=== PATIENT | male | born 1945 | race Caucasian/White ===

== ENCOUNTER → 2019-08-04 | Outpatient (CLI) | payer MEDICARE, BC ==
[2019-08-04 15:18] LABS: HCT 47.1 % (39.0-53.0); HGB 15.7 gm/dL (13.0-17.5); MCH 31.1 pg (25.0-35.0); MCHC 33.3 g/dL (31.0-37.0); MCV 93.5 fL (80.0-100.0); Mean Platelet Volume 6.6; Platelet Count 346 k/uL (150-450); RBC 5.04 m/uL (4.30-5.90); RDW 12.8 % (11.5-15.5); WBC 10.2 k/uL (3.8-10.6)
[2019-08-04 15:21] LABS: Appearance,Urine Clear (Clear); Bilirubin,Urine Negative (Negative); Blood,Urine Negative (Negative); Color,Urine Yellow; Glucose,Urine (UA) Negative (Negative); Ketones,Urine Negative (Negative); Leukocyte Esterase,Urine Negative (Negative); Nitrite,Urine Negative (Negative); Protein,Urine Negative (Negative); Specific Gravity,Urine 1.015 (1.001-1.035); Urobilinogen,Urine <2.0 mg/dL (<2.0)
[2019-08-04 15:24] LABS: Partial Thromboplastin Time 25.2 sec (22.0-30.0); Prothrombin Time 10.5 sec (9.0-12.0)
[2019-08-04 15:27] LABS: Albumin 4.5 g/dL (3.5-5.0); Calcium 9.8 mg/dL (8.4-10.2); Potassium 4.9 mmol/L (3.5-5.1); Total Bilirubin 0.7 mg/dL (0.2-1.3); Total Protein 7.2 g/dL (6.3-8.2)
== END | disposition home or self-care (01) ==
LOC: LABPAT 14:34
PROVIDERS: ATTEND Orthopaedic Surgery
DX: Z01.818 Encounter for other preprocedural examination (principal); Z01.812 Encounter for preprocedural laboratory examination; Z51.81 Encounter for therapeutic drug level monitoring; Z79.01 Long term (current) use of anticoagulants
CPT/HCPCS: 36415; 80053; 81003; 85027; 85610; 85730; 87070; 93005

== ENCOUNTER 2019-08-18 11:58 | Day surgery (SDC) | payer MEDICARE, BC ==
[2019-08-14 09:38] VITALS: BMI 30.1
[~2019-08-18 11:58] MED LIST: ACETAMINOPHEN TAB 500 MG TAB PO ONE; DEXAMETHASONE SOD PHOSPHATE 10 MG/ML 1 ML VIAL IV ONE; GABAPENTIN 300 MG CAP PO ONE; HYDROmorphone 0.5 MG/0.5 ML SYRINGE IVP PRN; LIDOCAINE 1% 20 ML VIAL (10MG/ML) FOR IV START INTRADERMA PRN; MELOXICAM 7.5 MG TAB PO ONE; METOCLOPRAMIDE 5 MG/ML 2 ML VIAL IVP PRN; ONDANSETRON 4 MG/2 ML VIAL IVP ONE; ROPIVACAINE 246.25 MG, EPINEPHrine 0.5 MG, KETOROLAC 30 MG, cloNIDine HCL/PF 80 MCG, WA... MISCELLANE ONE; VANCOMYCIN 1,500 MG in SODIUM CHLORIDE 0.9% 250 ML IVPB ONE
[2019-08-18] MEDS: LACTATED RINGERS 1,000 ML IV SCH ×2 (12:28→20:07)
[2019-08-18] MEDS ORDERED: MIDAZOLAM 2 MG/2 ML VIAL IV ONE (12:56)
[2019-08-18] MEDS ORDERED: fentaNYL (PF) 50 MCG/ML 2 ML AMP IV ONE (12:56)
--- NOTE | 2019-08-18 13:46 | P.ANPRN ---
Procedure Note - Anesthesia - Nerve Block Performed Left Adductor Canal Infusion Time Out Performed: Yes ([id number]) Date of Procedure: 08/18/19 Procedure Start Time: 12:56 Procedure Stop Time: 13:05 Location of Patient: PreOp Indication: Acute Post-Operative Pain, Requested by Surgeon Specifically requested for management of pain by DrCody: Trell Meyer Sedation Type: Sedate with meaningful contact maintained Preparation: Sterile Prep Position: Supine Catheter Depth at Skin (cm): 8 Needle Types: Pajunk Needle Gauge: 20 Ultrasound used to visualize needle placement: Yes Ultrasound used to observe medication spread: Yes Injectate: 0.5% Ropivacaine (see comment for volume) (20cc) Blood Aspirated: No Pain Paresthesia on Injection Noted: No Resistance on Injection: Normal Image Stored and Saved: Yes Events: Uneventful and Well Tolerated
[2019-08-18] MEDS ORDERED: fentaNYL (PF) 50 MCG/ML 2 ML AMP ONE (13:54)
[2019-08-18] MEDS ORDERED: MIDAZOLAM 2 MG/2 ML VIAL ONE (13:54)
[2019-08-18] MEDS ORDERED: TRANEXAMIC ACID 1,000 MG/10 ML VIAL ONE (13:54)
[2019-08-18] MEDS ORDERED: SODIUM CHLORIDE 0.9% 100 ML BAG ONE (13:54)
[2019-08-18] MEDS ORDERED: PROPOFOL 10 MG/ML 20 ML VIAL IV ONE (13:54)
[2019-08-18] MEDS ORDERED: ceFAZolin 3,000 MG in SODIUM CHLORIDE 0.9% IRRIGATIO 3,000 ML IRRIGATION ONE (13:59)
[2019-08-18] MEDS ORDERED: TRANEXAMIC ACID 2,000 MG in SODIUM CHLORIDE 0.9% 100 ML IVPB ONE (14:17)
[2019-08-18] MEDS ORDERED: LACTATED RINGERS 1,000 ML IV ONE (15:08)
--- NOTE | 2019-08-18 15:29 | P.OP ---
Date of Procedure: 08/18/19 Preoperative Diagnosis: Severe osteoarthritis left knee Postoperative Diagnosis: Severe osteoarthritis left knee Procedure(s) Performed: Left total knee arthroplasty Implants: Sanches and Nephew Journey II CR Oxinium Bi-cruciate Stabilized femoral component size 5, left Sanches & Nephew Journey left nonporous tibial baseplate size 6 Sanches & Nephew Journey II, XLPE Constrained articular insert, size 9 mm, Size 5- 6 left Sanches [employer] Nephew Journey BCS resurfacing oval patellar component, 32 mm All components were cemented using Palacos R bone cement.. The articulation is Oxinium on polyethylene. Anesthesia: spinal Surgeon: Trell Meyer Manager [employer] #1: Sonido Vega Estimated Blood Loss (ml): 50 Pathology: other (Bone and cartilage) Condition: stable Disposition: PACU Indications for Procedure: After failure of conservative treatment we discussed the surgical and nonsurgical treatment options at length. Patient wishes to proceed with a total knee arthroplasty. Complications specific to this procedure were discussed at length, including but not limited to infection, bleeding, stiffness, and nerve injury. Patient is aware of all these complications and informed consent was obtained Operative Findings: The operative findings are consistent with severe osteoarthritis the left knee Description of Procedure: Patient was seen in the preoperative area consent was reviewed and operative site was marked with a skin marker. An adductor canal pain catheter was placed by anesthesia in the preoperative area. Patient was then brought to the operating room and given preoperative antibiotics intravenously. A spinal anesthetic was administered by the anesthesia department. A tourniquet was placed on the upper thigh and the lower extremity was prepped and draped in usual sterile fashion. A gram of transexamic acid was given. A universal timeout was then performed which confirmed the patient's name, surgical site, ALLERGIES, and consent. The lower extremity was then exsanguinated and tourniquet was inflated to 250 mmHg. A standard and anterior midline approach to the knee was performed. The skin and subcutaneous tissue was dissected down to the patellar tendon. A medial parapatellar arthrotomy was then performed. The knee was then extended, the patellar was everted, and the knee was again flexed. Anterior horns of both menisci were excised, and a release was performed to the posterior medial aspect of the knee. On gross visual inspection, there was complete loss of articular cartilage in the medial and patellofemoral joint spaces. There was also significant cartilage damage in the lateral compartment. There were multiple periarticular osteophytes which were then removed with a Ronguer. The femoral canal was then opened with the appropriate drill, and the intramedullary femoral cutting guide was then placed and set for 5 of valgus. The distal femoral cutting block was then pinned in place, and the distal femur was then cut. The cutting block was then removed and the cut was checked for flatness. Next, the sizing guide was then placed and set for 3 external rotation based off of the epicondylar axis and Whitesides line. After the femur was sized, the appropriate 4-in-1 cutting block was then pinned in place. The anterior condyles were cut without notching. The posterior and chamfer cuts were performed while protecting the collateral ligaments. The cutting block was then removed, and the femoral canal was plugged with autologous bone. Attention was then directed to the tibia. The remaining ACL was removed with a Ronguer, and the tibia was then gently subluxed forward with a large bent knee retractor. Any remaining menisci was excised. The posterior lateral corner was cauterized in order to cauterize the lateral geniculate artery. The extra medullary tibial cutting guide was then placed, set for the appropriate rotation, slope, and depth of resection. The proximal tibia cutting guide was then pinned in place. Proximal tibia was then cut and sized. Next trials were then placed with the appropriate-sized insert. The knee was able to fully extend and flex to 130 and was stable throughout all range of motion. The knee was then extended, patella everted. Patella was then measured, and then using an osteotomy guide, the patella was cut at the appropriate level. The patella was then measured and drilled and the patella trial was then placed. The knee was then taken through range of motion with the patella trial and the patella tracked normally. The knee was then extended patella trial was then removed and the patella was everted. Knee was then flexed and lug holes were drilled through the femoral trial and the femoral trial was then removed. The tibial was then exposed, and the tibial broach guide was then pinned in place after it was set for the appropriate rotation to allow for the most coverage without overhang. The tibia was then reamed and broached. The cut surfaces of bone were then irrigated with pulsatile lavage. The posterior structures were injected with the ropivacaine solution. The knee was also irrigated with Irrisept solution. The components were then opened, the cement was mixed, and the components were then cemented in place. The cement was allowed to harden with the knee in full extension. While the cement was hardening, the remaining soft tissues were then injected with a ropivacaine solution, which consisted of 246.25 mg of ropivacaine, 0.5 mg of epinephrine, 30 mg of Toradol, 80 g of clonidine, and 48.45 mL of sterile water, for a total of 100 mL of fluid injected. After the cemented hardened. The tourniquet was released, and hemostasis was obtained. A second gram of transexamic acid was given. The knee was again irrigated. The knee was again taken through range of motion and found to be stable throughout all range of motion of 0-130, and the patella tracked normally. The fascia was then closed with #2 strata fix suture. The subcutaneous tissue was closed with 3-0 Vicryl and 3-0 strata fix. Dermabond glue was used for the skin and placed with the knee in flexion. The patient was placed in a sterile silver dressing. Patient was then transferred to recovery room in stable condition. The central supply assistant MCKINLEY Silver was required due the complexity surgery and the need for a skilled surgical assistant certified. She assisted in positioning, draping, retraction, and closure of the wound.
[2019-08-18] MEDS ORDERED: DIAZEPAM 5 MG TAB PO PRN (16:10)
[2019-08-18] MEDS ORDERED: HYDROcodone/APAP 5-325MG 1 EACH TAB PO PRN (16:10)
[2019-08-18] MEDS ORDERED: MAGNESIUM HYDROXIDE 2,400 MG/10 ML CUP PO PRN (16:10)
[2019-08-18] MEDS ORDERED: hydrOXYzine PAMOATE 25 MG CAP PO PRN (16:10)
[2019-08-18] MEDS ORDERED: NALOXONE 0.4 MG/ML 1 ML VIAL IV PRN (16:10)
[2019-08-18] MEDS ORDERED: ONDANSETRON 4 MG/2 ML VIAL IVP PRN (16:10)
[2019-08-18] MEDS ORDERED: HYDROmorphone 0.5 MG/0.5 ML SYRINGE IVP PRN ×2 (16:10)
[2019-08-18] MEDS ORDERED: ROPIVACAINE 0.2%-NS ON-Q PUMP 1,090 MG, EMPTY PAIN BALL 1 EACH MISCELLANE PRN (16:23)
--- NOTE | 2019-08-18 17:19 | XR ---
EXAMINATION TYPE: XR knee limited LT DATE OF EXAM: 08/18/2019 COMPARISON: NONE HISTORY: Postop knee surgery TECHNIQUE: 2 views FINDINGS: There is left knee prosthesis. Components are in anatomic position. IMPRESSION: No complicating process seen.
[2019-08-18] MEDS: ASPIRIN 325 MG TAB PO SCH (20:06)
[2019-08-18] MEDS ORDERED: SENNOSIDES-DOCUSATE SODIUM 1 EACH TAB PO SCH (21:00)
[2019-08-19] MEDS: LACTATED RINGERS 1,000 ML IV SCH ×2 (03:57→04:55)
[2019-08-19] MEDS: HYDROcodone/APAP 5-325MG 1 EACH TAB PO PRN ×2 (04:08→11:38)
--- NOTE | 2019-08-19 08:17 | P.DS ---
Providers Expected date of discharge: 08/19/19 Attending physician: Trell Meyer Consults: 08/18/19 16:10 Consult Physician Routine Consulting Provider: Markel Lujan Consult Reason/Comments: Medical management Do you want consulting provider notified?: Yes Primary care physician: Feli Perez - Discharge Diagnosis(es) (1) Primary osteoarthritis of left knee Current Visit: Yes Status: Acute (2) Status post total left knee replacement Current Visit: Yes Status: Acute Hospital Course: This is a 74-year-old male who was last seen with complaint of continued left knee pain. The patient has a known history of degenerative arthritis of the left knee and presents to discuss surgical options. After discussion and consideration the patient elects to proceed with total left knee arthroplasty. The patient is seen preoperatively by his primary care physician and cleared for surgery. The patient is admitted to [facility] for total left knee arthroplasty. The procedure is performed without complication or sequelae. He is doing well postoperatively. Vital signs are stable at discharge. Labs are stable at discharge. the patient is ambulating well with walker with minimal assistance. The patient is discharged to home on postop day #1 pending medical clearance. Please see orders and refer to the med rec for accurate list of medications. Plan - Discharge Summary Discharge Rx Participant: No New Discharge Prescriptions: New Aspirin 325 mg PO BID #60 tab HYDROcodone/APAP 7.5-325MG [[place] 7.5-325] 1 - 2 tab PO Q4-6H PRN #50 tab PRN Reason: Pain Sennosides-Docusate Sodium [Senokot-S] 1 tab PO BID #60 tablet No Action Venlafaxine HCl [Effexor] 37.5 mg PO DAILY Thyroid,Pork [[place] Thyroid] 60 mg PO DAILY Meloxicam [Mobic] 7.5 mg PO DAILY Discharge Medication List Meloxicam [Mobic] 7.5 mg PO DAILY 08/14/19 [History] Thyroid,Pork [[place] Thyroid] 60 mg PO DAILY 08/14/19 [History] Venlafaxine HCl [Effexor] 37.5 mg PO DAILY 08/14/19 [History] Aspirin 325 mg PO BID #60 tab 08/19/19 [Rx] HYDROcodone/APAP 7.5-325MG [[place] 7.5-325] 1 - 2 tab PO Q4-6H PRN #50 tab 08/19/19 [Rx] Sennosides-Docusate Sodium [Senokot-S] 1 tab PO BID #60 tablet 08/19/19 [Rx] Follow up Appointment(s)/Referral(s): Trell Meyer DO [Doctor of Osteopathic Medicine] - 2 Weeks Activity/Diet/Wound Care/Special Instructions: May bear weight as tolerated with walker. May shower if no drainage from incision.
[2019-08-19 08:18] LABS: Basophils % (A) 0 %; Eosinophils % (A) 0 %; HCT 40.4 % (39.0-53.0); Lymphocytes # (A) 2.1 k/uL (1.0-4.8); Lymphocytes % (A) 11 %; MCH 30.3 pg (25.0-35.0); MCHC 32.3 g/dL (31.0-37.0); MCV 93.8 fL (80.0-100.0); Mean Platelet Volume 7.1; Monocytes # (A) 1.1 k/uL (0-1.0); Monocytes % (A) 6 %; Neutrophils # (A) 15.5 k/uL (1.3-7.7); Neutrophils % (A) 82 %; Platelet Count 389 k/uL (150-450); RBC 4.31 m/uL (4.30-5.90); RDW 12.8 % (11.5-15.5); WBC 18.9 k/uL (3.8-10.6)
[2019-08-19] MEDS: ASPIRIN 325 MG TAB PO SCH (08:29)
[2019-08-19 08:33] VITALS: BP 132/68; PULSE 79; RESP 17; TEMP 98.3
--- NOTE | 2019-08-19 15:10 | P.CONS ---
History of Present Illness - Reason for Consult Leukocytosis - History of Present Illness Patient is admitted for left elective left hip arthroplasty x-ray underwent surgery patient is clinically doing well passing gas patient pain is well- controlled is being discharged today. Patient does have some psychiatric problems be on the patient denied any Symptoms of Chest Pain Nausea Dysuria. Patient Denied Any Cough Patient Does Have Leukocytosis Which Is Reactive Secondary to Surgery and Patient Can Be Discharged from Medical Perspective Review of Systems REVIEW OF SYSTEMS: CONSTITUTIONAL: No fever, no malaise, no fatigue. HEENT: No recent visual problems or hearing problems. Denied any sore throat. CARDIOVASCULAR: No chest pain, orthopnea, PND, no palpitations, no syncope. PULMONARY: No shortness of breath, no cough, no hemoptysis. GASTROINTESTINAL: No diarrhea, no nausea, no vomiting, no abdominal pain. NEUROLOGICAL: No headaches, no weakness, no numbness. HEMATOLOGICAL: Denies any bleeding or petechiae. GENITOURINARY: Denies any burning micturition, frequency, or urgency. MUSCULOSKELETAL/RHEUMATOLOGICAL: Denies any joint pain, swelling, or any muscle pain. ENDOCRINE: Denies any polyuria or polydipsia. The rest of the 14-point review of systems is negative. Past Medical History Past Medical History: GERD/Reflux, Osteoarthritis (OA), Prostate Disorder, Sleep Apnea/CPAP/BIPAP, Thyroid Disorder Additional Past Medical History / Comment(s): has cpap History of Any Multi-Drug Resistant Organisms: None Reported Past Surgical History: Orthopedic Surgery, Prostate Surgery Additional Past Surgical History / Comment(s): turp, rt arm with titanium in place Past Anesthesia/Blood Transfusion Reactions: No Reported Reaction Past Psychological History: Depression Smoking Status: Never smoker Past Alcohol Use History: Rare Past Drug Use History: None Reported - Past Family History Mother Family Medical History: Cancer Additional Family Medical History / Comment(s): breast cancer Medications and Allergies Home Medications Medication Instructions Recorded Confirmed Type Meloxicam [Mobic] 7.5 mg PO DAILY 08/14/19 08/14/19 History Thyroid,Pork [[place] Thyroid] 60 mg PO DAILY 08/14/19 08/14/19 History Venlafaxine HCl [Effexor] 37.5 mg PO DAILY 08/14/19 08/18/19 History Aspirin 325 mg PO BID #60 tab 08/19/19 Rx HYDROcodone/APAP 7.5-325MG [[place] 1 - 2 tab PO Q4-6H PRN #50 tab 08/19/19 Rx 7.5-325] Sennosides-Docusate Sodium 1 tab PO BID #60 tablet 08/19/19 Rx [Senokot-S] Allergies Allergy/AdvReac Type Severity Reaction Status Date / Time red yeast rice AdvReac gerd Verified 08/18/19 12:18 Physical Exam Vitals: Vital Signs Temp Pulse Pulse Pulse Resp BP Pulse Ox 08/19/19 08:00 79 17 08/19/19 07:00 98.3 F 79 17 132/68 95 08/19/19 01:09 98.5 F 97 15 127/68 94 L 08/19/19 00:00 15 08/18/19 19:32 16 08/18/19 19:30 107 H 129/72 08/18/19 19:00 102 H 144/63 08/18/19 18:45 99 147/66 08/18/19 18:30 100 142/54 08/18/19 18:15 99 138/77 08/18/19 18:00 91 145/79 08/18/19 17:45 92 170/64 08/18/19 17:30 98.0 F 92 15 156/76 96 08/18/19 17:10 98.0 F 82 17 156/76 96 08/18/19 16:47 89 16 146/69 94 L 08/18/19 16:36 90 18 136/71 93 L 08/18/19 16:21 90 18 111/72 94 L 08/18/19 16:06 97.3 F L 90 18 139/76 94 L Intake and Output 08/19/19 08/19/19 08/19/19 06:59 14:59 22:59 Other: Voiding Method Urinal Toilet # Voids 1 PHYSICAL EXAMINATION: GENERAL: The patient is alert and oriented x3, not in any acute distress. Well developed, well nourished. HEENT: Pupils are round and equally reacting to light. EOMI. No scleral icterus. No conjunctival pallor. Normocephalic, atraumatic. No pharyngeal erythema. No thyromegaly. CARDIOVASCULAR: S1 and S2 present. No murmurs, rubs, or gallops. PULMONARY: Chest is clear to auscultation, no wheezing or crackles. ABDOMEN: Soft, nontender, nondistended, normoactive bowel sounds. No palpable organomegaly. MUSCULOSKELETAL: No joint swelling or deformity. EXTREMITIES: No cyanosis, clubbing, or pedal edema. Surgical site area is clean without any infection NEUROLOGICAL: Gross neurological examination did not reveal any focal deficits. SKIN: No rashes. Results CBC & Chem 7: 08/19/19 07:27 Labs: Abnormal Lab Results - Last 24 Hours (Table) 08/19/19 Range/Units 07:27 WBC 18.9 H (3.8-10.6) k/uL Neutrophils # 15.5 H (1.3-7.7) k/uL Monocytes # 1.1 H (0-1.0) k/uL Assessment and Plan Plan: -Leukocytosis reactive seconded to surgery forsymptomsofinfectionnofurthertestingisnecessary -Gasesvisualrefluxdisease -Hypothyroidism -Depression -Sleepapneapatientcanresumehishomemedicationsasitiswithoutanychangesnofurtherrec ommendationfrommetastases.Medicinepatientcanbedischargedfrommedicalperspective
== END 2019-08-19 14:01 ==
LOC: OR 11:58 → 4SSUR 16:03 → OR 08-19 14:01
PROVIDERS: ATTEND Orthopaedic Surgery
DX: M17.12 Unilateral primary osteoarthritis, left knee (principal); M21.162 Varus deformity, not elsewhere classified, left knee; J45.909 Unspecified asthma, uncomplicated; G47.33 Obstructive sleep apnea (adult) (pediatric); E03.9 Hypothyroidism, unspecified; F32.9 Major depressive disorder, single episode, unspecified; K21.9 Gastro-esophageal reflux disease without esophagitis; D72.829 Elevated white blood cell count, unspecified; H91.90 Unspecified hearing loss, unspecified ear; Z99.89 Dependence on other enabling machines and devices; Z91.018 Allergy to other foods; Z98.890 Other specified postprocedural states; Z79.1 Long term (current) use of non-steroidal anti-inflammatories (NSAID); Z79.899 Other long term (current) drug therapy; Z79.890 Hormone replacement therapy; Z80.3 Family history of malignant neoplasm of breast; Z97.3 Presence of spectacles and contact lenses; Z90.79 Acquired absence of other genital organ(s); Z88.0 Allergy status to penicillin
CPT/HCPCS: 97161; 64448; 76942; 85025; 88300; 73560; 27447; C1713; C1776; J2250; J0171; J3370; J1100; J0690 ×3; J2405; J3010; J1885; J2795 ×2; J2704; J0735